=== PATIENT | female | born 1985 ===

== ENCOUNTER → 2022-10-06 | Outpatient (CLI) | payer OTHER ==
[2022-10-07 16:11] LABS: HPV 16 Negative (Negative); HPV 18 Negative (Negative); HPV OTHER HR TYPES Negative (Negative)
== END | disposition home or self-care (01) ==
LOC: LAB SHORT 11:37 → LAB 11:37
PROVIDERS: Obstetrics & Gynecology
DX: Z01.419 Encounter for gynecological examination (general) (routine) without abnormal findings (principal)
CPT/HCPCS: 87624; G0145